=== PATIENT | female | born 1945 | race Caucasian/White ===

== ENCOUNTER 2018-06-12 19:27 | Inpatient (IN) | payer MEDICARE, OTHER ==
[2018-06-12] MEDS ORDERED: NS 0.9% 1000 ML** 2,000 ML IV ONE (19:39)
--- NOTE | 2018-06-12 19:48 | ED ---
Shortness of Breath - HPI Summary HPI Summary: This patient is a 72 year old female brought in by ambulance presenting to [facility] with a chief complaint of SOB since 3 days ago. Patient states that she has been suffering a terrible chest pain and dyspnea for the past 3 days. She says that whenever she gets up to get a glass of water, it takes several minutes for her to catch her breath. The pain is rated 5/10 in severity. Symptoms aggravated by nothing. Symptoms alleviated by nothing. Patient additionally reports back pain, nonproductive cough, low-grade fever, nausea, and a lack of appetite. Patient denies vomiting, abd pain. - History of Current Complaint Chief Complaint: EDShortnessOfBreath Time Seen by Provider: 06/12/18 19:34 Hx Obtained From: Patient Onset/Duration: Lasting Days - 3, Still Present Timing: Constant Dyspnea At: Rest Aggrevating Factors: Nothing Alleviating Factors: Nothing Associated Signs & Symptoms: Negative - vomiting, abd pain, Cough (Nonproductive ), Wheezing, Fever - Allergy/Home Medications Allergies/Adverse Reactions: Allergies Allergy/AdvReac Type Severity Reaction Status Date / Time Sulfa (Sulfonamide Allergy Hives Verified 06/12/18 19:54 Antibiotics) Home Medications: Home Medications Atenolol [Tenormin] 100 mg PO DAILY 06/12/18 [History Confirmed 06/12/18] Clopidogrel Bisulfate [Plavix] 75 mg PO DAILY 06/12/18 [History Confirmed ] Metformin HCl [Glucophage] 500 mg PO DAILY 06/12/18 [History Confirmed 06/12/18] [place]-3 Acid Ethyl Esters [Lovaza] 1 gm PO DAILY 06/12/18 [History Confirmed 04/28] Omeprazole 40 mg PO DAILY 06/12/18 [History Confirmed 06/12/18] Pravachol 40 mg PO DAILY 06/12/18 [History Confirmed 06/12/18] Ramipril [Altace] 10 mg PO DAILY 06/12/18 [History Confirmed 06/12/18] Sertraline HCl [Zoloft] 100 mg PO DAILY 06/12/18 [History Confirmed 06/12/18] PMH/Surg Hx/FS Hx/Imm Hx Previously Healthy: No Endocrine/Hematology History: Reports: Hx Diabetes Cardiovascular History: Reports: Hx Hypercholesterolemia, Hx Hypertension Opthamlomology History: Denies: Hx Legally Blind EENT History: Denies: Hx Deafness Infectious Disease History: No Infectious Disease History: Denies: Traveled Outside the [place] in Last 30 Days - Family History Known Family History: Positive: Hypertension - Social History Lives: Alone Alcohol Use: None Hx Substance Use: No Substance Use Type: Reports: None Hx Tobacco Use: Yes Smoking Status (MU): Light Every Day Tobacco Smoker Type: Cigarettes Review of Systems Positive: Fever Positive: Chest Pain Positive: Shortness Of Breath, Cough Positive: Nausea. Negative: Abdominal Pain, Vomiting Positive: Other - back pain All Other Systems Reviewed And Are Negative: Yes Physical Exam - Summary Physical Exam Summary: Appearance: Well-appearing, Well-nourished, lying in bed with mild dyspneic Skin: Warm, dry, no obvious rash Eyes: sclera anicteric, no conjunctival pallor ENT: mucous membranes moist, pharynx appears normal Neck: Supple, nontender Respiratory: Right lungs have some expiratory wheezes, No signs of consolidation Cardiovascular: Normal S1, S2. No murmurs. Normal distal pulses in tibial and radial bilaterally. Abdomen: Soft, nontender, normal active bowel sounds present Musculoskeletal: Normal, Strength/ROM Intact Neurological: A&Ox3, awake and alert, mentation is normal, speech is fluent and appropriate Psychiatric: affect is normal, does not appear anxious or depressed Triage Information Reviewed: Yes Vital Signs On Initial Exam: Initial Vitals Temp Pulse Resp BP Pulse Ox 99.8 F 92 20 139/75 94 06/12/18 19:34 06/12/18 19:34 06/12/18 19:34 06/12/18 19:34 06/12/18 19:34 Vital Signs Reviewed: Yes Diagnostics - Vital Signs Vital Signs Temp Pulse Resp BP Pulse Ox 06/12/18 19:34 99.8 F 92 20 139/75 94 - Laboratory Result Diagrams: 06/12/18 20:35 06/12/18 20:35 Lab Statement: Any lab studies that have been ordered have been reviewed, and results considered in the medical decision making process. - Radiology CXR Radiology Interpretation Completed By: ED Physician Summary of Radiographic Findings: CXR reveals, per ED physician, no acute process. Pending official report. - CT CTA Chest CT Interpretation Completed By: Radiologist Summary of CT Findings: CTA Chest reveals, per radiologist, IMPRESSION: 1. No acute pulmonary embolic disease. 2. Abnormal thickening of the wall of the lower lobe bronchi as well as an infiltrate located in the left upper lung. This is consistent with an inflammatory/infectious process. 3. 4 mm pulmonary nodule located in the periphery of the left upper lung. This appears to be a solitary pulmonary nodule with smooth margins and no calcification. ED physician has reviewed this radiology report. - EKG 1954 Cardiac Rate: NL EKG Rhythm: Sinus Rhythm - 87 BPM Ectopy: None Summary of EKG Findings: An EKG, taken 1954, reveals, NSR (87 BPM), borderline ST depression in diffuse leads, normal axis, normal interval Course/Dx - Course Course Of Treatment: This patient is a 72 year old female brought in by ambulance presenting to [facility] with a chief complaint of SOB since 3 days ago. Patient states that she has been suffering a terrible chest pain and dyspnea for the past 3 days. She says that whenever she gets up to get a glass of water , it takes several minutes for her to catch her breath. An EKG, taken 1954, reveals, NSR (87 BPM), borderline ST depression in diffuse leads. CXR reveals, per ED physician, no acute process. Pending official report. CTA Chest reveals, per radiologist, IMPRESSION: 1. No acute pulmonary embolic disease. 2. Abnormal thickening of the wall of the lower lobe bronchi as well as an infiltrate located in the left upper lung. This is consistent with an inflammatory/ infectious process. 3. 4 mm pulmonary nodule located in the periphery of the left upper lung. This appears to be a solitary pulmonary nodule with smooth margins and no calcification. ED physician has reviewed this radiology report. Bloodwork Obtained. In the ED course the patient was given Albuterol, Zithromax , Zofran, Rocephin, Solu-Medrol, Iodixanol. We discussed patient care with Dr. Vaca (Hospitalist) at 0040 and they agreed to accept the patient. Patient will be admitted with a dx of pneumonia. The patient is agreeable with this plan. - Diagnoses Provider Diagnoses: Pneumonia - Physician Notifications Discussed Care of Patient With: Hunter Vaca - Hospitalist Time Discussed With Above Provider: 00:40 - We discussed patient care with Dr. Vaca (Hospitalist) at 0040 and they agreed to accept the patient Instructed by Provider To: Admit As Inpatient Discharge - Sign-Out/Discharge Documenting (check all that apply): Patient Departure Patient Received Moderate/Deep Sedation with Procedure: No - Discharge Plan Condition: Stable Disposition: ADMITTED TO [facility] - Billing Disposition and Condition Condition: STABLE Disposition: Admitted to [facility] - Attestation Statements Document Initiated by Florencia: Yes Documenting Scribe: Leonardo Tan Provider For Whom Florencia is Documenting (Include Credential): MD Dakota Yipibpaulino Attestation: Leonardo Foster scribed for Antony Mckee MD on 06/13/18 at 0614. Scribe Documentation Reviewed: Yes Provider Attestation: The documentation as recorded by the Leonardo alvarado accurately reflects the service I personally performed and the decisions made by Antony estrella MD Status of Scribpaulino Document: Viewed
[2018-06-12] MEDS ORDERED: Albuterol 2.5 MG/3 ML NEB.SOL* (0.083%) INH ONE ×2 (20:25→23:38)
[2018-06-12] MEDS ORDERED: methylPREDNISolone 125 MG* 2 ML VIAL IV ONE (20:25)
[2018-06-12] MEDS ORDERED: cefTRIAXone(*) 1 GM in NS 0.9% 50 ML* 50 ML IVPB ONE (20:26)
[2018-06-12] MEDS ORDERED: Azithromycin IV(*) 500 MG in NS 0.9% 250 ML* 250 ML IVPB ONE (20:26)
[2018-06-12 20:44] LABS: ABS Basophils 0.1 10^3/ul (0-0.2); ABS Eosinophils 0.1 10^3/ul (0-0.6); ABS Lymphocytes 1.1 10^3/ul (1.0-4.8); ABS Neutrophils 10.6 10^3/ul (1.5-7.7); Eosinophil % 0.6 %; Hematocrit 38 % (35-47); Lymphocyte % 8.4 %; Mean Corpuscular HGB Conc 32 g/dL (31-36); Mean Corpuscular Hemoglobin 28 pg (27-31); Mean Corpuscular Volume 88 fL (80-97); Mean Platelet Volume 6.8 fL (7.4-10.4); Nucleated Red Blood Cells % 0.1; Platelet Count 426 10^3/uL (150-450); Red Blood Count 4.25 10^6 /uL (3.70-4.87); Red Cell Distribution Width 16 % (10.5-15); White Blood Count 12.7 10^3/uL (3.5-10.8)
[2018-06-12] MEDS ORDERED: NS 0.9% 250 ML* 250 ML ONE (20:47)
[2018-06-12 21:00] LABS: Albumin 3.8 g/dL (3.2-5.2); BUN/Creatinine Ratio 20.9 (8-20); Calcium 9.1 mg/dL (8.6-10.3); EGFR African American 41.8 (>60); EGFR Non-African American 34.6 (>60); Globulin 3.8 g/dL (2-4); Potassium 3.8 mmol/L (3.5-5.0); Total Bilirubin 0.3 mg/dL (0.2-1.0); Total Protein 7.6 g/dL (6.4-8.9)
[2018-06-12 21:03] LABS: Troponin I 0.02 ng/mL (<0.04)
[2018-06-12] MEDS ORDERED: Iodixanol* (CONTRAST) 320 MG/ML 100 ML SDV IV ONE (21:36)
[2018-06-12] MEDS ORDERED: Ondansetron INJ* 2 MG/ML VIAL ONE (22:00)
[2018-06-12] MEDS ORDERED: Ondansetron INJ* 2 MG/ML VIAL IV ONE (22:00)
[2018-06-13] MEDS ORDERED: Acetaminophen TAB* 325 MG PO ONE (00:56)
[2018-06-13] MEDS ORDERED: Dextrose 50% Syringe 50 ML* 25 GM/50 ML SYRINGE IV PUSH PRN (01:17)
[2018-06-13] MEDS ORDERED: Enoxaparin(*) 40 MG/0.4 ML SYR SUBCUT SCH (02:00)
--- NOTE | 2018-06-13 02:47 | ADMNOTE ---
Subjective Date of Service: 06/13/18 Interval History: HISTORY AND PHYSICAL PCP: [facility] CC: dyspnea HPI: Patient is a 72 year old smoker who denies history of COPD, who reports 3 days of anterior chest pain, and dyspnea on exertion. The pain is mild, 3-4/10 , and migrates from anterior to right posterior thorax. The pain is respirophasic at times. The dyspnea w/ exertion has worsened, and this led her to come to the ER. She has a non-productive cough, some nausea and vomiting, and fevers to 100 at home. Family History: Findings - Father of [place], mother of natural causes, no siblings, children are well Social History: Findings - retired nurse tech, , 4 children, lives independently, smokes 1/2 PPD, no alcohol or drugs Past Medical History: Findings - type 2 diabetes, hypertension, hyperlipidemia, CAD, PAD, chronic kidney disease, anxiety; PSH: left CEA, appendectomy years ago Review of Systems - Measurements Intake and Output: Intake and Output Last 24 Hours 06/10/18 06/11/18 06/12/18 06/13/18 06:59 06:59 06:59 06:59 Intake Total 2069 Balance 2069 Weight 61.235 kg Intake: IV Fluids 2069 - Review of Systems Constitutional Symptoms: Positive: Fatigue, Fever Negative: Weight Loss Dermatology: Positive: Normal HEENT: Positive: Normal Eyes: Positive: Normal Thyroid: Positive: Normal Negative: Palpitations Pulmonary: Positive: Cough, Shortness of Breath, Exercise Intolerance Negative: Sputum, Hemoptysis, Wheezing, COPD, Home Oxygen Cardiology: Positive: Chest Pain, Shortness of Breath, Peripheral Vascular Dis Negative: Swelling of Ankles, Syncope, Orthopnoea Gastroenterology: Positive: Nausea, Vomiting Negative: Abdominal Pain, Constipation, Diarrhea Genital - Urinary: Positive: Normal Genitourinay - Female: Positive: Menopause Musculoskeletal: Negative: Joint Pain Endocrinology: Positive: Diabetes Mellitus Hematologic/Lymphatic: Negative: Anemia Neurology: Positive: Normal Psychiatry: Positive: Anxiety Negative: Unusual Anxiety Allergic/Immunologic: Negative: Athsma Objective Active Medications: Home Medications: Atenolol (Tenormin Tab*) 100 mg PO DAILY [facility] Clopidogrel Bisulfate (Plavix Tab*) 75 mg PO DAILY [facility] Pantoprazole Sodium (Protonix Tab*) 40 mg PO DAILY [facility] Ramipril (Altace Cap*) 10 mg PO DAILY [facility] Sertraline HCl (Zoloft*) 100 mg PO DAILY [facility] Pravachol 40 mg PO DAILY 06/12/18 Metformin HCl [Glucophage] 500 mg PO DAILY 06/12/18 [place]-3 Acid Ethyl Esters [Lovaza] 1 gm PO DAILY 06/12/18 Vital Signs - 8 hr 06/12/18 06/12/18 06/12/18 19:34 20:00 20:05 Temperature 37.7 C Pulse Rate 93 87 89 Respiratory 20 19 27 Rate Blood Pressure 139/75 155/86 (mmHg) O2 Sat by Pulse 95 92 93 Oximetry 06/13/18 06/13/18 06/13/18 00:23 00:52 01:00 Temperature Pulse Rate 85 84 84 Respiratory 35 24 33 Rate Blood Pressure 94/76 122/63 (mmHg) O2 Sat by Pulse 95 93 93 Oximetry 06/13/18 06/13/18 02:00 02:13 Temperature 37.2 C Pulse Rate 78 80 Respiratory 29 20 Rate Blood Pressure 106/51 (mmHg) O2 Sat by Pulse 92 92 Oximetry Oxygen Devices in Use Now: Nasal Cannula Appearance: alert, no distress Eyes: No Scleral Icterus Ears/Nose/Mouth/Throat: NL Teeth, Lips, Gums Neck: NL Appearance and Movements; NL JVP Respiratory: Symmetrical Chest Expansion and Respiratory Effort, Clear to Auscultation Cardiovascular: NL Sounds; No Murmurs; No JVD, RRR Abdominal: NL Sounds; No Tenderness; No Distention, No Hepatosplenomegaly Lymphatic: No Cervical Adenopathy, No Axillary Adenopathy Extremities: No Edema Skin: No Rash or Ulcers Neurological: Alert and Oriented x 3 Lines/Tubes/Other Access: Clean, Dry and Intact Peripheral IV Nutrition: Taking PO's Result Diagrams: 06/12/18 20:35 06/12/18 20:35 Additional Lab and Data: Laboratory Tests 06/12/18 06/12/18 06/12/18 20:35 20:35 20:35 D-Dimer, Quantitative 459 H Glucose 154 H Lactic Acid 1.8 Calcium 9.1 AST 8 L ALT 6 L Troponin I 0.02 B-Natriuretic Peptide Total Protein 7.6 06/12/18 20:35 D-Dimer, Quantitative Glucose Lactic Acid Calcium AST ALT Troponin I B-Natriuretic Peptide 302 H Total Protein Diagnostic Imaging: CXR: no infiltrates CT Chest: no PE, left upper lobe infiltrates, small pulmonary nodule (4mm) EKG Data: Normal sinus, normal axis, T-waves inverted V1-V5, ST depression V2-V6 Assess/Plan/Problems-Billing Assessment: 72 year old woman with likely COPD, and right upper lobe pneumonia - Patient Problems (1) Pneumonia Current Visit: Yes Status: Acute Priority: High Code(s): J18.9 - PNEUMONIA , UNSPECIFIED ORGANISM SNOMED Code(s): 988875394 Comment: -Patient will be admitted, treated for community-acquired pneumonia -Ceftriaxone and azithromycin should cover strep pneumo, H influenza -Will send urine antigens -Not treating for COPD at this point, because not wheezing or hypoxic. (2) Chest pain Current Visit: Yes Status: Acute Priority: Medium Code(s): R07.9 - CHEST PAIN, UNSPECIFIED SNOMED Code(s): 14798462 Comment: -Patient has atypical chest pain, but has ischemia on EKG -Will monitor on telemetry, trend troponins, as she may have ischemia -Chest pain likely related to pneumonia (3) Type 2 diabetes mellitus Current Visit: Yes Status: Acute Priority: Medium Comment: -Will hold metformin due to CT contrast -Will use sliding scale insulin to control sugar if needed (4) DVT prophylaxis Current Visit: Yes Status: Acute Priority: Low Code(s): Z29.9 - ENCOUNTER FOR PROPHYLACTIC MEASURES, UNSPECIFIED SNOMED Code(s): 717431864 Comment: -Moderate risk -SC lovenox Status and Disposition: inpatient
[2018-06-13] MEDS: NS 0.9% 1000 ML** 1,000 ML IV SCH ×3 (03:00→22:46)
[2018-06-13] MEDS: Acetaminophen TAB* 325 MG PO PRN ×2 (05:40→19:38)
[2018-06-13 06:46] LABS: Troponin I 0.18 ng/mL (<0.04)
[2018-06-13] MEDS: Ondansetron INJ* 2 MG/ML VIAL IV PRN ×3 (08:22→19:38)
[2018-06-13] MEDS: Clopidogrel TAB* 75 MG PO SCH ×2 (08:28→09:26)
[2018-06-13] MEDS: Atorvastatin* 10 MG TAB PO SCH ×2 (08:28→09:26)
[2018-06-13] MEDS: Atenolol TAB* 50 MG PO SCH ×2 (08:28→09:26)
[2018-06-13] MEDS: Pantoprazole TAB * 40 MG TAB PO SCH ×2 (08:28→09:26)
[2018-06-13] MEDS: Sertraline* 100 MG TAB PO SCH (08:29)
[2018-06-13] MEDS: Insulin LISPRO* 1 UNITS UNIT SUBCUT SCH ×4 (08:31→21:36)
[2018-06-13] MEDS ORDERED: Ramipril CAP* 10 MG PO SCH (09:00)
[2018-06-13 09:24] LABS: Troponin I 0.3 ng/mL (<0.04)
[2018-06-13] MEDS ORDERED: Nitroglycerin TAB 0.4 MG* 0.4 MG TAB SL ONE (09:26)
[2018-06-13] MEDS ORDERED: Aspirin TAB* 325 MG PO ONE (09:38)
[2018-06-13] MEDS ORDERED: Aspirin TAB* 325 MG ONE (09:57)
[2018-06-13 10:40] LABS: ABS Lymphocytes 0.7 10^3/ul (1.0-4.8); ABS Monocytes 0.5 10^3/ul (0-0.8); Hematocrit 33 % (35-47); Hemoglobin 10.6 g/dL (12.0-16.0); Mean Corpuscular HGB Conc 33 g/dL (31-36); Mean Corpuscular Hemoglobin 29 pg (27-31); Mean Corpuscular Volume 88 fL (80-97); Nucleated Red Blood Cells % 0.1; Platelet Count 433 10^3/uL (150-450); Red Blood Count 3.72 10^6 /uL (3.70-4.87); Red Cell Distribution Width 16 % (10.5-15); White Blood Count 14.4 10^3/uL (3.5-10.8)
[2018-06-13 10:48] LABS: Activated Partial Thrombo Time 29.6 seconds (26.0-36.3); INR 1.14 (0.82-1.09)
[2018-06-13 10:49] LABS: HDL Cholesterol 39.8 mg/dL
[2018-06-13 10:57] LABS: BUN/Creatinine Ratio 22.5 (8-20); Calcium 8.6 mg/dL (8.6-10.3); EGFR African American 45.3 (>60); EGFR Non-African American 37.5 (>60)
[2018-06-13] MEDS: Heparin DRIP 25,000 UNITS(*) 25,000 UNITS/500 ML BAG IV SCH (11:17)
[2018-06-13] MEDS: Heparin VIAL(*) 5000 UNITS/ML VIAL (FIVE THOUSAND) IV PRN (11:17)
[2018-06-13] MEDS ORDERED: PROCHLORPERAZINE INJ 5 MG/ML 2 ML VIAL IV PRN (11:23)
--- NOTE | 2018-06-13 11:25 | PN ---
Subjective Date of Service: 06/13/18 Interval History: Ms. Lord is not feeling well this morning. She is having severe chest pain, unable to rate. Chest pain is left-sided, across right side of back, and along bilat ribs. No aggravating or alleviating factors. She had received nitro approx 5 min prior to my exam and reported no change in pain level. Has a dry cough. Denies SOB. Has been feeling nauseous and vomited after taking her medications this morning. Has had 3 cardiac stents placed in the past at [facility] - most recent approx 15 years ago. Nursing expressed concern re chest pain and nausea. Family History: Unchanged from Admission Social History: Unchanged from Admission Past Medical History: Unchanged from Admission Objective Active Medications: Acetaminophen (Tylenol Tab*) 650 mg PO Q4H PRN FEVER/HEADACHE Aspirin (Aspirin Tab*) 325 mg PO DAILY [facility] Atenolol (Tenormin Tab*) 100 mg PO DAILY [facility] Atorvastatin Calcium (Lipitor*) 20 mg PO DAILY [facility] Clopidogrel Bisulfate (Plavix Tab*) 75 mg PO DAILY [facility] Dextrose (D50w Syringe 50 Ml*) 12.5 gm IV PUSH .FOR FS < 60 - SS PRN FS < 60 Heparin Sodium (Porcine) (Heparin Vial(*)) 0 - 3,900 units IV .PER PROTOCOL PRN PROTOCOL DIRECTS Azithromycin 500 mg/ Sodium (Chloride) 250 mls @ 250 mls/hr IVPB Q24H [facility] Ceftriaxone Sodium 1,000 mg/ (Sodium Chloride) 50 mls @ 200 mls/hr IVPB Q24H LAKISHA Sodium Chloride (Ns 0.9% 1000 Ml) 1,000 mls @ 100 mls/hr IV PER RATE [facility] Heparin Sodium/Dextrose (Heparin Drip 25,000 Units(*)) 25,000 units in 500 mls @ 0 mls/hr IV PER RATE LAKISHA; Protocol Insulin Human Lispro (Humalog*) 0 units SUBCUT ACHS LAKISHA; Protocol Ondansetron HCl (Zofran Inj*) 4 mg IV Q6H PRN NAUSEA Pantoprazole Sodium (Protonix Tab*) 40 mg PO DAILY [facility] Ramipril (Altace Cap*) 10 mg PO DAILY [facility] Sertraline HCl (Zoloft*) 100 mg PO DAILY [facility] Vital Signs - 8 hr 06/13/18 06/13/18 06/13/18 08:00 08:24 08:31 Temperature Pulse Rate 92 92 Respiratory 18 22 Rate Blood Pressure 101/57 116/66 (mmHg) O2 Sat by Pulse 94 Oximetry 06/13/18 06/13/18 06/13/18 09:35 09:54 10:58 Temperature 98.0 F 98.1 F Pulse Rate 93 93 Respiratory 20 22 Rate Blood Pressure 104/41 100/43 (mmHg) O2 Sat by Pulse 97 93 Oximetry Oxygen Devices in Use Now: Nasal Cannula - 2L Appearance: Elderly female laying in bed in NAD Eyes: No Scleral Icterus Ears/Nose/Mouth/Throat: Mucous Membranes Moist Neck: NL Appearance and Movements; NL JVP, Trachea Midline Respiratory: Symmetrical Chest Expansion and Respiratory Effort, - - Scattered wheezing and rhonchi Cardiovascular: NL Sounds; No Murmurs; No JVD, RRR Abdominal: NL Sounds; No Tenderness; No Distention Extremities: No Edema Skin: No Rash or Ulcers Neurological: Alert and Oriented x 3 Lines/Tubes/Other Access: Clean, Dry and Intact Peripheral IV Nutrition: Taking PO's Result Diagrams: 06/14/18 06:08 06/14/18 06:08 Assess/Plan/Problems-Billing Assessment: Ms. Lord is a 72 yo F with PMH of DM2, HTN, HLD, CAD s/p 3 stents, PAD, CKD, and anxiety; who presented to the ED with c/o chest pain and SOB and was admitted for pneumonia. - Patient Problems (1) Elevated troponin Current Visit: Yes Status: Acute Code(s): R74.8 - ABNORMAL LEVELS OF OTHER SERUM ENZYMES SNOMED Code(s): 843454213 Comment: - Associated left-sided chest pain (now resolved) and nausea - Negative trop and minimal ST depression on admission, but this morning trop rising and profoud diffuse ST depression on EKG - NSTEMI vs demand ischemia d/t pneumonia - Appreciate Cardiology consult; recommends continuing current meds; will take to equipment operator/laborer/supervisor if trops continue to increase significantly (5-6) - Nitro x1 this morning without significant improvement (2) Pneumonia Code(s): J18.9 - PNEUMONIA, UNSPECIFIED ORGANISM Comment: - Presented with 3-4 days of SOB - CTA unremarkable for PE but shows JESSICA infiltrate - Pending strep pneumo and legionella antigens - Not treating for COPD at this point, because not wheezing or hypoxic; no formal dx of COPD, but dx is likely d/t smoking history - Continue ceftriaxone, azithromycin (3) Lung nodule Code(s): R91.1 - SOLITARY PULMONARY NODULE Comment: - 4mm JESSICA nodule noted on CT - High risk d/t smoking history; should have repeat CT in 12 months to reassess (4) CAD (coronary artery disease) Code(s): I25.10 - ATHSCL HEART DISEASE OF [place] CORONARY ARTERY W/O ANG PCTRS Comment: - S/p stenting to LCA in 2005, RCA in 2006, LAD in 2006 - LDL 119 - Continue aspirin; increase atorvastatin (5) Type 2 diabetes mellitus Comment: - Hgb 7.5% - Hold metformin d/t CT contrast - Continue Lispro SS (6) Hypertension Code(s): I10 - ESSENTIAL (PRIMARY) HYPERTENSION Comment: - Normotensive - Continue atenolol, ramipril (7) PAD (peripheral artery disease) Code(s): I73.9 - PERIPHERAL VASCULAR DISEASE, UNSPECIFIED Comment: - Continue Plavix (8) CKD (chronic kidney disease), stage III Code(s): N18.3 - CHRONIC KIDNEY DISEASE, STAGE 3 (MODERATE) Comment: - Creatinine at baseline (9) DVT prophylaxis Comment: - Heparin gtt (10) Full code status Code(s): Z78.9 - OTHER SPECIFIED HEALTH STATUS Comment: Status and Disposition: Inpatient. Anticipate d/c home when medically stable. Attending: Denise Castorena
[2018-06-13 12:24] LABS: Troponin I 0.64 ng/mL (<0.04)
--- NOTE | 2018-06-13 13:46 | CONS ---
CC: [facility] CARDIOLOGY CONSULTATION: DATE OF CONSULT: 06/13/18 INDICATION FOR CONSULT: Coronary artery disease, elevated troponin levels. HISTORY OF PRESENT ILLNESS: The patient is a 72-year-old woman with a history of stenting to her cor onary arteries, most recently in 2006. The patient was admitted to the hospital after 3 to 4 days of feeling chest pain, nausea, and some degree of shortness of breath. The patient states she was just not feeling well for 3 days or so. Unable to eat anything because of her nausea. Ultimately, the p atient decided to come to the emergency room because of her weakness. In the emergency room, the pat ient's initial EKG showed minimal ST-segment depressions in leads I, II, III, aVF, V2 through V6. Th ere were about 0.5 mm [address]-segment depression. Her initial troponin level was 0.18. A CAT sca n in the emergency room showed no evidence of pulmonary embolism. She did have a retrocardiac pneumo rios. The patient was admitted to the hospital with a diagnosis of pneumonia and was started on antibi otics. This morning, the patient continued to have her symptoms of chest discomfort, nausea, and tyler rtness of breath. Repeat EKG showed profound ST-segment depressions in the same leads as described julian bethea, [address]- segment depression. In speaking with the patient this morning, her symptoms a re not significantly different than what she was experiencing at home. She still had the anterior ch est pain occasionally radiating into her back. She had nausea. Her greatest complaint in the nausea and her profound weakness. She denies any significant shortness of breath, she denies any lower ext remity edema, she denies any palpitations. No lightheadedness, dizziness, or syncope. PAST MEDICAL HISTORY: Significant for coronary artery disease. She has had stenting to all 3 arteri es in 2005. She had a stent to her left circumflex artery, it was a 2.5 x 23 mm Cypher stent. In 2006, she had a stent to her proximal right coronary artery. She had a 3 mm x 28 mm Cypher tina nt. In November 2006, she had a stent to her LAD. She had a 2.5 mm x 28 mm Cypher stent. Other past medical history is significant for: 1. Hypertension. 2. Diabetes. 3. Hyperlipidemia. 4. Mild renal insufficiency. 5. Anxiety. She has had a left carotid endarterectomy in the past and an appendectomy in the past. MEDICATIONS: Outpatient Medications: 1. Sertraline 100 mg a day. 2. Ramipril 10 mg a day. 3. Pravachol 40 mg a day. 4. Omeprazole 20 mg a day. 5. Fish oil tablet 1 g daily. 6. Metformin 500 mg daily. 7. Plavix 75 mg a day. 8. Atenolol 100 mg a day. 9. Aspirin 325 a day. ALLERGIES: SULFA MEDICATIONS. FAMILY HISTORY: Her father of a myocardial infarction. Her mother of natural causes in he r 80s. SOCIAL HISTORY: She is a retired medical massage therapist. She is . She has 4 children. She live s independently. She smokes one-half pack of cigarettes a day. REVIEW OF SYSTEMS: Positive for nausea, positive for chest pain, positive for fevers, positive for c hills. Negative for change in weight, negative for change in bowel or bladder habits. Other 12-poin t review is unremarkable. PHYSICAL EXAM: Height is 5 feet 6 inches, weight is 143 pounds, temperature 98, heart rate is 93, bl ood pressure 104/41, and oxygen saturation 97% on 2 L. Sclerae anicteric. Oropharynx is pink withou t erythema. Carotids are 2+. She does have a carotid endarterectomy scar on her left. She has a sl ight bruise on her right. Thyroid is normal. JVD is normal. Cardiac Exam: S1 and S2 without any mu rmurs, rubs, or gallops. Lungs: Clear to auscultation. There is no dullness to percussion. Abdome n is soft. Mild epigastric tenderness. Normoactive bowel sounds. Extremities show no edema. She h as 2+ pulses throughout. The patient is awake and alert and oriented. She moves all 4 extremities e qually. DIAGNOSTIC STUDIES/LAB DATA: Chemistries within normal limits. BUN 31, creatinine 1.4, AST and ALT are actually low. BNP 302. Total cholesterol 119, LDL cholesterol of 55. EKG is as described above. Chest x-ray as described above. IMPRESSION: This is a 72-year-old woman with a history of coronary artery disease, history of stenti ng to all 3 coronary arteries back in 2005 and 2006, who is admitted to the hospital with chest pain, nausea, and fevers. The patient was originally diagnosed with pneumonia based on her CAT scan. She was admitted to the hospital for antibiotics. Subsequently, the patient was noted to have a minimal ly elevated troponin level and profound ST-segment depression in her lateral and in inferior leads. In speaking with the patient in great detail, it is very difficult to elicit any significant change i n her symptoms. Over the last 5 days, they have been pretty much constant throughout the past 5 days . For now, my recommendation is to continue on maximal medical therapy. She is on aspirin, Plavix, hep corie, beta elina, and her BONIFACIO inhibitor. At this point, I do not think it is necessary to take the patient to the clay processing labourer as this may be a sy ndrome of diffuse inflammatory process from her pneumonia. The patient will be followed with her troponins on a regular basis. If her troponin starts to increa se significantly, we will reconsider cardiac catheterization. Otherwise, the patient will be conside red for a cardiac stress test prior to discharge. [id number]/[facility] #: [id number]
[2018-06-13 15:25] LABS: Troponin I 1.29 ng/mL (<0.04)
[2018-06-13 18:25] LABS: Troponin I 2.06 ng/mL (<0.04)
[2018-06-13 20:56] LABS: Troponin I 3.21 ng/mL (<0.04)
--- NOTE | 2018-06-13 21:23 | PN ---
Progress Note - Progress Note Date of Service: 06/13/18 Note: Call from nurse re troponin 3. Dr. Quinones consulted earlier today re evolving significant ST depressions laterally, troponin trending up. She still has continuous chest pain. BP 90/45 range, holding off on morphine due to low BP. Discussed case with Dr. Lozano in ED. The overall picture includes pneumonia, demand ischemia. He was aware of case, had discussed earlier today with Dr. Quinones. Reviewed EKGs and troponins with Dr. Lozano. If troponin rises above 5, will call cardiology again.
[2018-06-13] MEDS: cefTRIAXone VIAL(*) 1,000 MG in NS 0.9% 50 ML* 50 ML IVPB SCH (21:55)
[2018-06-13] MEDS: Azithromycin IV(*) 500 MG in NS 0.9% 250 ML* 250 ML IVPB SCH (22:44)
[2018-06-13] MEDS: Morphine 4 MG/ML VIAL (1 ml) 4 MG/ML VIAL IV PRN (23:21)
[2018-06-14 00:37] LABS: Troponin I 4.34 ng/mL (<0.04)
[2018-06-14] MEDS: Morphine 4 MG/ML VIAL (1 ml) 4 MG/ML VIAL IV PRN (05:51)
[2018-06-14 06:31] LABS: ABS Lymphocytes 1.4 10^3/ul (1.0-4.8); ABS Monocytes 0.9 10^3/ul (0-0.8); ABS Neutrophils 9.6 10^3/ul (1.5-7.7); BUN/Creatinine Ratio 24.2 (8-20); Blood Urea Nitrogen 44 mg/dL (6-24); CO2 Carbon Dioxide 16 mmol/L (22-32); Calcium 8.5 mg/dL (8.6-10.3); EGFR Non-African American 27.2 (>60); Glucose 151 mg/dL (70-100); Hematocrit 30 % (35-47); Hemoglobin 9.8 g/dL (12.0-16.0); Lymphocyte % 11.7 %; Mean Corpuscular HGB Conc 32 g/dL (31-36); Mean Corpuscular Hemoglobin 28 pg (27-31); Mean Corpuscular Volume 88 fL (80-97); Mean Platelet Volume 6.9 fL (7.4-10.4); Platelet Count 424 10^3/uL (150-450); Red Blood Count 3.44 10^6 /uL (3.70-4.87); Red Cell Distribution Width 16 % (10.5-15); Sodium 138 mmol/L (135-145)
[2018-06-14 06:36] LABS: Anion Gap 10 mmol/L (2-11); Chloride 112 mmol/L (101-111); Potassium 5.1 mmol/L (3.5-5.0); Troponin I 6.36 ng/mL (<0.04)
[2018-06-14] MEDS ORDERED: Morphine 4 MG/ML VIAL (1 ml) 4 MG/ML VIAL IV PRN (07:19)
[2018-06-14] MEDS ORDERED: Perflutren Lipid Microsphere* 3 ML VIAL ONE (08:18)
[2018-06-14] MEDS ORDERED: diPHENhydraMINE PO* 25 MG PO PRN (08:56)
[2018-06-14] MEDS ORDERED: Diazepam TAB(*) 5 MG PO PRN (08:56)
[2018-06-14] MEDS: Insulin LISPRO* 1 UNITS UNIT SUBCUT SCH ×4 (08:58→20:28)
[2018-06-14] MEDS ORDERED: Atorvastatin* 20 MG TAB PO SCH (09:00)
[2018-06-14] MEDS: Aspirin TAB* 325 MG PO SCH (09:08)
[2018-06-14] MEDS: Sertraline* 100 MG TAB PO SCH (09:09)
[2018-06-14] MEDS: Atenolol TAB* 25 MG PO SCH (09:09)
[2018-06-14] MEDS: Pantoprazole TAB * 40 MG TAB PO SCH (09:09)
[2018-06-14] MEDS: Clopidogrel TAB* 75 MG PO SCH (09:09)
[2018-06-14] MEDS ORDERED: nitroGLYCERIN DRIP* 25,000 MCG/250 ML BTL ONE (09:39)
[2018-06-14] MEDS ORDERED: VERAPAMIL 2.5 MG/ML 2 ML VIAL ** 5 mg/2 ml ONE (09:39)
[2018-06-14] MEDS ORDERED: Heparin(*) 1000 UNIT/ML 10 ML VIAL CATH LAB IV ONE (09:39)
[2018-06-14] MEDS ORDERED: fentaNYL* 50 MCG/ML 2 ML VIAL (100 MCG VIAL) ONE (09:39)
[2018-06-14] MEDS ORDERED: Midazolam* 1 MG/ML 5 ML VIAL (5 MG) ONE (09:39)
[2018-06-14] MEDS ORDERED: Lidocaine 1% INJ* 10 MG/ML 30 ML SDV ONE (09:40)
[2018-06-14] MEDS ORDERED: Heparin 2 UNITS/ML IVPREMIX* 3,000 UNIT/1,500 ML BAG IV ONE (09:40)
[2018-06-14] MEDS ORDERED: Iohexol 350 (CONTRAST) 200 ML MDV IV ONE ×2 (09:40)
[2018-06-14] MEDS ORDERED: Iodixanol 320 (CONTRAST) 100 ML SDV ONE (09:42)
[2018-06-14 10:02] LABS: Troponin I 5.99 ng/mL (<0.04)
--- NOTE | 2018-06-14 10:15 | ECHO ---
*[facility]* [place] [address] Fax #: [phone] Transthoracic Echocardiogram Patient: Pop, Height: 66 in / Laura Ruffin 167.6 cm : 1945 Weight: 142.7 lb / Study Date: 06/14/2018 64.9 kg Age: 72 BP: 94 / 45 Gender: F BMI/BSA: 23.1 kg/m^2 HR: 77 bpm / 1.73 m^2 *Alcoholic Counselor: * Lacey Martin RDCS RN *Referring Physician: * Demarco Quinones MD *Reading Physician: * Demarco Quinones MD Indications: Chest Pain, unspecified. History: Coronary artery disease with coronary stenting. Risk factors: Current tobacco use. Hypertension. Diabetes mellitus. Dyslipidemia. Conclusions Summary: 1. Left ventricle: The cavity size is normal. Wall thickness is normal. The estimated ejection fraction is 30-35%. Severe hypokinesis of the mid-apical anteroseptal, anterior, lateral, and inferior myocardium possibly consistant with Takasubo's 2. Mitral valve: There is mild to moderate regurgitation. 3. Aortic valve: There is no evidence of stenosis. There is trace to mild regurgitation. 4. Tricuspid valve: There is moderate regurgitation. 5. Pulmonary arteries: Systolic pressure is estimated to be 50 mm Hg. 6. Study data: No prior study is available for comparison. Study data: Transthoracic echocardiogram. Procedure: Transthoracic echocardiography was performed. Image quality was fair. The study was technically limited due to Smoking history. A total of 3 ml of diluted Definity was administered IV. Image enhancement administered by Arleen Jaime RN. Complete 2D, spectral Doppler, and color flow Doppler. Patient status: Inpatient. Patient room number: 431. No prior study is available for comparison. Rhythm: Normal sinus rhythm. Findings Left ventricle: The cavity size is normal. Wall thickness is normal. The estimated ejection fraction is 30-35%. Regional wall motion abnormalities: Severe hypokinesis of the mid-apicalanteroseptal, anterior, lateral, and inferior myocardium. Features are consistent with a pseudonormal left ventricular filling pattern, with concomitant abnormal relaxation and increased filling pressure (grade 2 diastolic dysfunction). Right ventricle: The cavity size is normal. Severe hypokinesis of the RV apex. The estimated peak pressure is 61 mm Hg. There is severe pulmonary hypertension. Left atrium: The atrium is normal in size. Right atrium: The atrium is normal in size. Mitral valve: The leaflets are mildly thickened. There is no evidence of stenosis. There is mild to moderate regurgitation. The peak diastolic gradient is 3.3 mm Hg. Aortic valve: Not well visualized. The leaflets are mildly thickened. There is no evidence of stenosis. There is trace to mild regurgitation. The LVOT to aortic valve VTI ratio is 0.68. The ratio of LVOT to aortic valve peak velocity is 0.71. The ratio of LVOT to aortic valve mean velocity is 0.69. The mean systolic gradient is 2.0 mm Hg. The peak systolic gradient is 4.0 mm Hg. Tricuspid valve: The valve is structurally normal. There is no evidence of stenosis. There is moderate regurgitation. Pulmonic valve: There is no evidence of stenosis. There is no significant regurgitation. The peak systolic gradient is 1.0 mm Hg. Aorta: Aortic root: The aortic root is not dilated. Ascending aorta: The ascending aorta is not visualized. Aortic arch: The aortic arch is not visualized. Pulmonary arteries: Not well visualized. Systolic pressure is estimated to be 50 mm Hg. Systemic veins: Inferior vena cava: The vessel is normal in size. The respirophasic diameter changes are blunted (< 50%). Measurements Left ventricle Value Ref Right atrium Value Ref RONNY, LAX (L) 3.7 cm 3.8 - 5.2 ML dim, ES, A4C 3.5 cm 2.6 - ESD, LAX 3.2 cm 2.2 - 3.5 4.4 FS, LAX (L) 13 % 27 - 45 SI dim, ES, A4C 3.4 cm 3.4 - PW, ED, LAX (H) 1.0 cm 0.6 - 0.9 5.3 IVS/PW, ED 0.99 E', lat phil, TDI (L) 6.3 cm/sec >=10.0 Aortic valve Value R ef E/e', lat phil, 14 Phil diam, ED 1.6 cm ---- ---- TDI Peak v, S 1.04 m/sec -------- E', med phil, TDI (L) 3.7 cm/sec >=7.0 Mean v, S 0.74 m/sec - ------- E/e', med phil, 24 VTI, S 22.2 cm ---- ---- TDI Mean grad, S 2.0 mm Hg -------- E', avg, TDI 5.0 cm/sec Peak grad, S 4.0 mm Hg ---- ---- E/e', avg, TDI (H) 18 <=14 Mitral valve Value Ref LVOT Value Ref Peak E 0.9 m/sec -------- Peak winnie, S 0.74 m/sec Peak A 0.87 m/sec -------- Mean winnie, S 0.51 m/sec Decel time 158 ms -------- VTI, S 15.0 cm Peak grad, D 3.3 mm Hg -------- Mean grad, S 1 mm Hg Peak E/A ratio 1 -------- MR PISA radius 0.6 cm -------- Ventricular septum Value Ref IVS, ED, LAX (H) 1.0 cm 0.6 - 0.9 Tricuspid valve Value Ref TR peak v (H) 3.4 m/sec <=2.8 Right ventricle Value Ref Peak RV-RA grad, 46 mm Hg -------- RONNY minor ax, 2.7 cm 1.9 - 3.5 S A4C mid Aortic root Value Ref Left atrium Value Ref Root diam 2.6 cm <3.9 AP dim, ES 2.80 cm 2.70 - Root max diam, ED 2.6 cm <3.9 3.80 ML dim, A4C 3.0 cm Inferior vena cava Value Ref SI dim, A4C 4.3 cm Diam 2.2 cm -------- Vol/bsa, ES, 1-p 20 ml/m^2 11 - 40 A4C Vol/bsa, ES, 1-p 18 ml/m^2 13 - 40 A2C Vol/bsa, ES, A/L 22 ml/m^2 16 - 34 Legend: (L) and (H) stewart values outside specified reference range. Prepared and electronically signed by Demarco Quinones MD 06/14/2018 10:15
[2018-06-14] MEDS ORDERED: Adenosine (DIAGNOSTIC) * 3 MG/ML 20 ML VIAL (60 MG) IV ONE (10:33)
[2018-06-14] MEDS ORDERED: Adenosine* 3 MG/ML VIAL ONE (10:34)
--- NOTE | 2018-06-14 10:51 | PN ---
Subjective Date of Service: 06/14/18 Interval History: Ms. Lord is feeling poor this morning. She is having left sided chest pain which waxes and wanes, but is a 7/10 at the worst. No aggravating or alleviating factors. Frequent dry cough and was up much of the night coughing. Denies SOB at rest, but has significant SOB with any exertion. Denies N/V. Does not want me to call any of her family to update them. Nursing concerned about rising trops, EKG changes, and continued CP. Family History: Unchanged from Admission Social History: Unchanged from Admission Past Medical History: Unchanged from Admission Objective Active Medications: Acetaminophen (Tylenol Tab*) 650 mg PO Q4H PRN FEVER/HEADACHE Aspirin (Aspirin Tab*) 325 mg PO DAILY [facility] Atenolol (Tenormin Tab*) 25 mg PO DAILY [facility] Atorvastatin Calcium (Lipitor*) 20 mg PO DAILY [facility] Clopidogrel Bisulfate (Plavix Tab*) 75 mg PO DAILY [facility] Dextrose (D50w Syringe 50 Ml*) 12.5 gm IV PUSH .FOR FS < 60 - SS PRN FS < 60 Diazepam (Valium Tab(*)) 5 mg PO ONCE PRN inbound call center representative to [employer] Diphenhydramine HCl (Benadryl Po*) 25 mg PO ONCE PRN inbound call center representative to [employer] Heparin Sodium (Porcine) (Heparin Vial(*)) 0 - 3,900 units IV .PER PROTOCOL PRN PROTOCOL DIRECTS Azithromycin 500 mg/ Sodium (Chloride) 250 mls @ 250 mls/hr IVPB Q24H [facility] Ceftriaxone Sodium 1,000 mg/ (Sodium Chloride) 50 mls @ 200 mls/hr IVPB Q24H [facility] Sodium Chloride (Ns 0.9% 1000 Ml) 1,000 mls @ 100 mls/hr IV PER RATE [facility] Heparin Sodium/Dextrose (Heparin Drip 25,000 Units(*)) 25,000 units in 500 mls @ 0 mls/hr IV PER RATE [facility]; Protocol Insulin Human Lispro (Humalog*) 0 units SUBCUT ACHS [facility]; Protocol Morphine Sulfate (Morphine 4 Mg/Ml Vial (1 Ml)) 2 mg IV Q4H PRN PAIN Ondansetron HCl (Zofran Inj*) 4 mg IV Q6H PRN NAUSEA Pantoprazole Sodium (Protonix Tab*) 40 mg PO DAILY [facility] Prochlorperazine Edisylate (Compazine Inj*) 10 mg IV Q6H PRN NAUSEA/VOMITING Sertraline HCl (Zoloft*) 100 mg PO DAILY [facility] Vital Signs - 8 hr 06/14/18 06/14/18 06/14/18 05:51 06:29 07:18 Temperature Pulse Rate Respiratory 20 20 Rate Blood Pressure 94/45 (mmHg) O2 Sat by Pulse Oximetry 06/14/18 06/14/18 08:00 09:05 Temperature 97.6 F Pulse Rate 76 Respiratory 20 20 Rate Blood Pressure 105/52 (mmHg) O2 Sat by Pulse 97 Oximetry Oxygen Devices in Use Now: Nasal Cannula - 2L Appearance: Elderly female laying in bed in NAD Eyes: No Scleral Icterus Ears/Nose/Mouth/Throat: Mucous Membranes Moist Neck: NL Appearance and Movements; NL JVP, Trachea Midline Respiratory: Symmetrical Chest Expansion and Respiratory Effort, - - Scattered wheezing, otherwise diminished Cardiovascular: NL Sounds; No Murmurs; No JVD, RRR Abdominal: NL Sounds; No Tenderness; No Distention Extremities: No Edema Skin: No Rash or Ulcers Neurological: Alert and Oriented x 3 Lines/Tubes/Other Access: Clean, Dry and Intact Peripheral IV Result Diagrams: 06/14/18 06:08 06/14/18 06:08 Assess/Plan/Problems-Billing Assessment: Ms. Lord is a 72 yo F with PMH of DM2, HTN, HLD, CAD s/p 3 stents, PAD, CKD, and anxiety; who presented to the ED with c/o chest pain and SOB and was admitted for pneumonia. - Patient Problems (1) Elevated troponin Code(s): R74.8 - ABNORMAL LEVELS OF OTHER SERUM ENZYMES Comment: - Associated left-sided chest pain (now resolved) and nausea - Negative trop and minimal ST depression on admission - Trops peaked at 6.36 and continues to have diffuse ST depression on EKG - Echo shows severe global hypokinesis consistent with Takasubo, EF 30-35% - NSTEMI vs demand ischemia d/t pneumonia - Appreciate Cardiology consult; recommends continuing current meds; will take to [employer] today due to rising trops (2) Chest pain Code(s): R07.9 - CHEST PAIN, UNSPECIFIED Comment: - Left-sided and 7/10 at the worst - NSTEMI vs pneumonia - Plan as above - Continue morphine with hold parameters for BP (3) Pneumonia Code(s): J18.9 - PNEUMONIA, UNSPECIFIED ORGANISM Comment: - Presented with 3-4 days of SOB - CTA unremarkable for PE but shows JESSICA infiltrate - Pending strep pneumo and legionella antigens - Not treating for COPD at this point, because not wheezing or hypoxic; no formal dx of COPD, but dx is likely d/t smoking history and she would benefit from PFTs once this acute illness has resolved - Continue ceftriaxone, azithromycin (4) Acute respiratory failure with hypoxia Code(s): J96.01 - ACUTE RESPIRATORY FAILURE WITH HYPOXIA Comment: - Secondary to pneumonia - Requiring 3L NC - Titrate oxygen - Plan as above (5) Sepsis Comment: - Resolved - Met criteria on admission with tachycardia, tachypnea, and leukocytosis; source is pneumonia - Received appropriate fluid bolus and abx in ED (6) Lung nodule Code(s): R91.1 - SOLITARY PULMONARY NODULE Comment: - 4mm JESSICA nodule noted on CT - High risk d/t smoking history; should have repeat CT in 12 months to reassess (7) CAD (coronary artery disease) Code(s): I25.10 - ATHSCL HEART DISEASE OF [place]' CORONARY ARTERY W/O ANG PCTRS Comment: - S/p stenting to LCA in 2005, RCA in 2006, LAD in 2006 (all at [facility]) - LDL 119 - Continue aspirin, atorvastatin (increased dose) (8) Type 2 diabetes mellitus Comment: - Hgb 7.5% - Hold metformin d/t CT contrast - Continue Lispro SS (9) Hypertension Code(s): I10 - ESSENTIAL (PRIMARY) HYPERTENSION Comment: - Normotensive - Continue atenolol, ramipril (10) PAD (peripheral artery disease) Code(s): I73.9 - PERIPHERAL VASCULAR DISEASE, UNSPECIFIED Comment: - Continue Plavix (11) CKD (chronic kidney disease), stage III Code(s): N18.3 - CHRONIC KIDNEY DISEASE, STAGE 3 (MODERATE) Comment: - Creatinine at baseline (12) DVT prophylaxis Comment: - Heparin gtt (13) Full code status Code(s): Z78.9 - OTHER SPECIFIED HEALTH STATUS Comment: Status and Disposition: Inpatient. Anticipate d/c home when medically stable. Attending: Denise Castorena
--- NOTE | 2018-06-14 13:56 | CATH ---
CC: [facility] * CARDIAC CATHETERIZATION REPORT: DATE OF PROCEDURE: 06/14/18 PROCEDURE: Cardiac catheterization including coronary angiography. INDICATION FOR PROCEDURE: Acute coronary syndrome, coronary artery disease. The patient is a 72-year-old female with a history of coronary artery disease with history of stenting to all 3 coronary arteries back in 2005 and 2006. Her last cath was in 2006, which was a stent to her LAD. The patient was admitted to the hospital yesterday with chest pain, shortness of breath, fevers, nausea. Her EKG showed diffuse ST-segment depression throughout her lateral and inferior saenz. The patient's chest pain was constant throughout the past previous 5 days. Her initial troponin level was 0.3. Over the last 24 hours, it has risen to a maximum of 6.3. The patient continues to have some mild chest pain. Cardiac catheterization was recommended. DESCRIPTION OF PROCEDURE: The patient was brought to the catheterization lab in a fasting state. Informed consent had been obtained prior to the procedure. All labs were reviewed. The patient's creatinine had gone up to 1.8 from a baseline of 1.3. The patient was placed supine on the procedure table. Her right radial wrist was prepped and draped in the usual fashion. 1% lidocaine was used for local anesthesia. The radial artery was entered by a Seldinger technique and a guidewire was placed. Over the guidewire, a 6-Tajik hydrophilic sheath was placed. The patient had an infusion of verapamil and nitroglycerin. Heparin was not used as the patient was on a heparin drip. The patient underwent coronary angiography using a 6-Tajik TIG catheter. At the end of the procedure, all sheaths and catheters were removed. The patient tolerated the procedure well and no complications. A total of 50 cc of Visipaque dye was used. A total of 3.3 minutes of fluoro time was used. CORONARY ARTERIES: 1. Left main: The left main was normal in size that bifurcated into the LAD and circumflex. The proximal left main had an eccentric 20% stenosis. 2. Left anterior descending artery: The LAD was normal in size. It gave off 1 diagonal vessel. The proximal LAD had mild calcification. The mid LAD had a long stent. At the distal portion of the stent was a critical 95% in-stent restenosis. After the stent, the diagonal vessel was without disease, the LAD was occluded at the distal end of the stent. There was no clear evidence of collateral flow to the distal LAD itself. 3. Left circumflex artery: The circumflex artery was normal in size. It gave off 1 obtuse marginal branch. The stent in the mid left circumflex artery had minimal restenosis. The OM1 branch was without disease. The continuation of the circumflex artery in the AV groove was a very small artery. There was an ostial stenosis of the circumflex at the stent that was 75%. 4. The right coronary artery: The RCA was a large dominant vessel. It gave off the PDA and 3 posterolateral branches. The proximal right coronary artery had a stent. In the stent, there was restenosis of 90%. There was sequential 90% stenosis of in-stent restenosis. The remainder of the right coronary artery PDA and posterolateral branches were without disease. IMPRESSION: 1. In-stent restenosis of the LAD at 95%. The remainder of the diagonal vessel was without disease. 2. Occluded LAD distal to the proximal stent with no evidence of collateral flow. 3. Critical restenosis of 90% to the proximal right coronary artery. The remainder of the vessel was without disease. RECOMMENDATION: The patient does not clearly have an acute coronary syndrome. There is no evidence of de shelley plaque instability. Her in-stent restenosis is not likely unstable. The patient's elevated troponin are probably due to her ongoing cardiac demand from her cardiomyopathy. For now, intervention will not be undertaken because of a rise in creatinine and minimally elevated troponin levels. The patient will be observed, perhaps interventions later on in her hospital stay or as an outpatient. [id number]/[facility] #: [id number] MAURY
[2018-06-14] MEDS: cefTRIAXone VIAL(*) 1,000 MG in NS 0.9% 50 ML* 50 ML IVPB SCH (20:16)
[2018-06-14] MEDS: Heparin DRIP 25,000 UNITS(*) 25,000 UNITS/500 ML BAG IV SCH (20:17)
[2018-06-14] MEDS: Azithromycin IV(*) 500 MG in NS 0.9% 250 ML* 250 ML IVPB SCH (22:15)
[2018-06-14] MEDS: Ondansetron INJ* 2 MG/ML VIAL IV PRN (23:27)
[2018-06-14] MEDS ORDERED: NS 0.9% 250 ML* 250 ML IV ONE (23:33)
--- NOTE | 2018-06-14 23:37 | PN ---
Hospitalist Progress Note Date of Service: 06/14/18 HOSPITALIST ADDENDUM Called by RN because patient is c/o nausea and lightheadedness. Cardiac cath earlier today revealed in-stent restenosis LAD 95%, occluded distal LAD, 90% RCA - initial plan was for intervention later during hospital stay or as outpatient. Seen at bedside. Pale with mild diaphoresis, denies chest pain. Selected Entries 06/14/18 06/15/18 22:01 00:00 Heart Rate 73 Respiratory 26 Rate Blood Pressure 90/47 (mmHg) O2 Sat by Pulse 96 Oximetry CVS: normal S1 and S2, RRR Chest: BS+ bilaterally with no added sounds EKG: NSR at [address] depressions in II, III, aVL, V3-V6, less pronounced than earlier today. Laboratory Tests 06/14/18 23:47 Troponin I 19.68 H* A/P: NSTEMI - Already on maximal medical therapy with Aspirin, Plavix, Heparin drip, Atenolol, Statin. - Cardiology called - Dr Quinones will contact Dr Lozano.
[2018-06-15 00:18] LABS: Troponin I 19.68 ng/mL (<0.04)
[2018-06-15] MEDS ORDERED: nitroGLYCERIN DRIP* 25,000 MCG/250 ML BTL ONE (00:44)
[2018-06-15] MEDS ORDERED: nitroGLYCERIN DRIP* 25,000 MCG/250 ML BTL IV SCH (01:00)
[2018-06-15 01:07] LABS: Anion Gap 10 mmol/L (2-11); BUN/Creatinine Ratio 20.7 (8-20); Blood Urea Nitrogen 52 mg/dL (6-24); Calcium 7.3 mg/dL (8.6-10.3); Chloride 112 mmol/L (101-111); EGFR African American 22.7 (>60); EGFR Non-African American 18.8 (>60); Glucose 122 mg/dL (70-100); Sodium 133 mmol/L (135-145)
[2018-06-15 01:08] LABS: CO2 Carbon Dioxide 11 mmol/L (22-32)
[2018-06-15 01:18] LABS: Urine Appearance Cloudy; Urine Bacteria Absent (Absent); Urine Bilirubin Negative (Negative); Urine Blood Negative (Negative); Urine Color Yellow; Urine Glucose Negative (Negative); Urine Ketones Trace (Negative); Urine Nitrite Negative (Negative); Urine Protein 1+(30 mg/dL) (Negative); Urine Red Blood Cell 2+(6-10/hpf) (Absent); Urine Specific Gravity 1.036 (1.010-1.030); Urine Squamous Epithelial Cell Present (Absent); Urine Urobilinogen Negative (Negative); Urine White Blood Cell Trace(0-5/hpf) (Absent)
[2018-06-15 04:16] LABS: Troponin I 23.86 ng/mL (<0.04)
[2018-06-15 05:45] LABS: Hematocrit 28 % (35-47); Hemoglobin 9.1 g/dL (12.0-16.0); Mean Corpuscular HGB Conc 33 g/dL (31-36); Mean Corpuscular Hemoglobin 29 pg (27-31); Mean Corpuscular Volume 88 fL (80-97); Mean Platelet Volume 7.1 fL (7.4-10.4); Platelet Count 417 10^3/uL (150-450); Red Blood Count 3.11 10^6 /uL (3.70-4.87); Red Cell Distribution Width 17 % (10.5-15); White Blood Count 13.6 10^3/uL (3.5-10.8)
[2018-06-15 05:59] LABS: BUN/Creatinine Ratio 19.3 (8-20); Blood Urea Nitrogen 58 mg/dL (6-24); C Reactive Protein 127.74 mg/L (<8.01); CO2 Carbon Dioxide 15 mmol/L (22-32); Calcium 8.1 mg/dL (8.6-10.3); Chloride 108 mmol/L (101-111); EGFR African American 18.4 (>60); EGFR Non-African American 15.2 (>60); Glucose 133 mg/dL (70-100); Sodium 137 mmol/L (135-145)
[2018-06-15 06:01] LABS: Anion Gap 14 mmol/L (2-11); Potassium 5.8 mmol/L (3.5-5.0)
[2018-06-15 06:16] LABS: Polychromasia 1+
[2018-06-15 06:17] LABS: ABS Neutrophils 11.2 10^3/ul (1.5-7.7)
[2018-06-15] MEDS: Heparin VIAL(*) 5000 UNITS/ML VIAL (FIVE THOUSAND) IV PRN (06:21)
[2018-06-15] MEDS: Heparin DRIP 25,000 UNITS(*) 25,000 UNITS/500 ML BAG IV SCH (06:22)
[2018-06-15] MEDS ORDERED: NS 0.9% 1000 ML** 1,000 ML IV SCH (07:00)
[2018-06-15] MEDS ORDERED: Patiromer POWDER* 8.4 GM PAK PO ONE (07:36)
[2018-06-15] MEDS: Acetaminophen TAB* 325 MG PO PRN (07:40)
[2018-06-15] MEDS: Insulin LISPRO* 1 UNITS UNIT SUBCUT SCH ×2 (08:56→12:12)
[2018-06-15] MEDS ORDERED: Atorvastatin* 40 MG TAB PO SCH (09:00)
[2018-06-15 11:48] LABS: Troponin I 26.83 ng/mL (<0.04)
[2018-06-15 11:51] LABS: Urine Creatinine Concentration 58.29 mg/dL
[2018-06-15] MEDS: Atenolol TAB* 25 MG PO SCH (12:11)
[2018-06-15] MEDS: Clopidogrel TAB* 75 MG PO SCH (12:11)
[2018-06-15] MEDS: Sertraline* 100 MG TAB PO SCH (12:11)
[2018-06-15] MEDS: Aspirin TAB* 325 MG PO SCH (12:11)
[2018-06-15] MEDS: Pantoprazole TAB * 40 MG TAB PO SCH (12:11)
[2018-06-15 12:35] VITALS: BP 87/52
--- NOTE | 2018-06-15 14:11 | TRS ---
CC: [facility]; Dr. Haim Soto; Dr. Dimitrios Lozano; Dr. Demarco Quinones * DATE OF ADMISSION: 06/13/2018. DATE OF TRANSFER: 06/15/2018. PRIMARY CARE PHYSICIAN: [facility]. ATTENDING PHYSICIAN: Dr. Denise Castorena * (dictated by Brian Brown NP). PRIMARY DIAGNOSES: 1. Kxa-ZM-hrzsdlop IL. 2. Acute on chronic kidney injury, baseline stage 3. 3. Sepsis. 4. Acute hypoxic respiratory failure. 5. Community-acquired pneumonia. 6. Solitary lung nodule. SECONDARY DIAGNOSES: 1. Diabetes mellitus, type 2. 2. Peripheral arterial disease. 3. Hypertension. STUDIES WHILE IN THE HOSPITAL: 1. Chest x-ray on 06/12/2018, reads as no evidence for active cardiopulmonary disease. 2. EKG on 06/12/2018 shows normal sinus rhythm with a rate of 87, diffuse mild ST depression, QTC 431. There are no previous EKG's on file to compare. 3. Chest/thorax CTA on 06/12/2018, reads as no acute pulmonary embolic disease. Abnormal thickening of the wall of the lower lobe bronchi as well as an infiltrate located in the left upper lung. This is consistent with an inflammatory/infectious process. A 4 mm pulmonary nodule located in the periphery of the left upper lung. This appears to be a solitary pulmonary nodule with smooth margins and no calcification. For patients at low risk ( minimal or absent history of smoking and of other known risk factors), no routine follow-up is indicated. For patients at high risk (history of smoking or of other known risk factors), consider optional CT at 12 months. 4. EKG on 06/13/2018 shows normal sinus rhythm with a rate of 94, diffuse ST depression, worse from the previous EKG, QTC 418. 5. EKG on 06/13/2018 shows normal sinus rhythm with a rate of 80, diffuse ST depression similar to that of the previous EKG, QTC 408. 6. EKG on 06/14/2018 shows normal sinus rhythm with a rate of 77, diffuse ST depression consistent with previous EKG, QTC 450. 7. Transthoracic echocardiogram on 06/14/2018, reads as left ventricle: The cavity size is normal. Wall thickness is normal. The estimated ejection fraction is 30 to 35 percent. Severe hypokinesis of the mid-apical anteroseptal , anterior, lateral, and inferior myocardium possibly consistent with Takotsubo. Mitral valve: There is mild to moderate regurgitation. Aortic valve : There is no evidence of stenosis. There is trace to mild regurgitation. Tricuspid valve: There is moderate regurgitation. Pulmonary arteries: Systolic pressure is estimated to be 50 mmHg. No prior study is available for comparison. 8. EKG on 06/14/2018 shows normal sinus rhythm with a rate of 70, ST depression consistent with previous EKG, QTC 461. 9. EKG on 06/15/2018 shows normal sinus rhythm with a rate of 72, minimal ST depression improved from previous EKG, QTC 401. HISTORY OF PRESENT ILLNESS AND HOSPITAL COURSE: Ms. Lord is a 72-year-old female with a past medical history of diabetes mellitus type 2, hypertension, hyperlipidemia, coronary artery disease status post three stents, most recently in 2006, peripheral artery disease, chronic kidney disease stage 3, and anxiety who presented to the emergency room on 06/13/2018 with complaints of chest pain and shortness of breath. Please see the history and physical by Dr. Vaca for a complete summary of the events leading up to this hospitalization. In short, the patient had three days of left-sided chest pain with dyspnea on exertion. She was also experiencing some nausea, vomiting, and fevers at home. In the emergency room, she had imaging as noted above. She was noted to meet sepsis criteria with tachycardia, tachypnea, and leukocytosis. The source was determined to be pneumonia. She was given appropriate fluid bolus and antibiotics in the emergency room. White blood count on admission was 12.7, creatinine on admission was 1.48. There is limited data in our records, though her last creatinine on record here at the hospital was 1.4 back in 2011. The patient did have a negative troponin on admission. She ultimately was requiring two liters of oxygen to maintain saturations in the 90s. She was admitted by the Hospitalist Service. The patient continued to experience chest pain and the morning after admission, troponin was rechecked and noted to be 0.18. At that point, an EKG was done which, as noted above, showed worsening ST depression diffusely. From there on out, the patient had serial troponins. On the morning of 06/14/2018, troponin peaked at 6.36. The patient had been seen by Dr. Quinones from Cardiology on 06/13 due to this elevated troponin and EKG changes. Dr. Quinones indicated that if the troponin reached 5 to 6, there will be consideration to take her to the liaison inspection laboratory assistant. The patient was already on maximal therapy of aspirin, Plavix, Heparin drip, beta elina, and BONIFACIO inhibitor. Ultimately, she was taken to the liaison inspection laboratory assistant on 06/14/2018. At that point, she was found to have 90 percent restenosis at her LAD stent, 90 percent restenosis in the RCA stent, and 30 to 40 percent restenosis in the LC extent. At that point, no intervention was taken due to the patient's rise in creatinine, which at that point was 1.82. The patient was subsequently transferred to the Intensive Care Unit after leaving the liaison inspection laboratory assistant. She continued to have chest pain and nausea. On 2018, around 2300, she had another troponin which was noted to be 19.68. She was started on a nitro drip. She was also noted to be hypotensive with systolic pressures down into the 70s and some complaints of dizziness. She was given fluid boluses for this, though we have been judicious with fluids due to her decreased EF. Since being on the nitro drip, the patient's chest pain has resolved. She did have more serial troponins and the most recent troponin as of 519 this morning was 25.40. The patient was seen again this morning by Dr. Quinones and by Dr. Soto with Interventional Cardiology and the plan was made to transfer the patient to [facility]. At this point, her creatinine has bumped to 3.01 and so cardiac catheterization is not possible at this facility due to these critical lesions and worsening renal function and potential need for dialysis. The patient is producing minimal amounts of urine at this time. She did have a potassium this morning of 5.8 for which she was given Patiromer. She has remained on the Heparin drip since initiation. I will note that the patient had one cardiac stent placed in 2005 and two cardiac stents placed in 2006, and both of those stents were placed at [facility]. At this point, the patient is NPO , though she did have a half a piece of toast and a few sips of water this morning around 0800. Regarding her pneumonia, the patient's sepsis has been resolved. The patient was placed on Ceftriaxone and Azithromycin on admission, and so has received two days of both. She remains on two liters of oxygen at this point, saturating in the mid 90s. Blood glucose has been under good control. On exam this morning, the patient was resting upon my arrival. She awoke to voice and offers no complaints. I did let the patient know that the ICU nurse would contact her daughter to update her and the plan of treatment and the patient did not request any further family members to be contacted at this point. She has no complaints of chest pain or shortness of breath and has not had any nausea or vomiting this morning. PHYSICAL EXAMINATION: General: Ms. Lord is a well-developed, well-nourished, elderly, white woman lying in bed in no acute distress. She appears her stated age. Vital Signs: Temperature 98.4, heart rate 71, respiratory rate 19, oxygen saturation 95 percent on 2 liters nasal cannula, blood pressure 75/42. HEENT: Head is atraumatic, normocephalic. Visual huston are grossly intact. Pupils are equal, round, and reactive to light and accommodation. Hearing is grossly intact. Oral mucus membranes are moist and without lesions. Neck: Full range of motion. Trachea midline. No lymphadenopathy. Respiratory: Symmetrical chest expansion. No chest wall deformities. Scattered wheezing throughout and otherwise diminished. No rhonchi or rubs. Cardiovascular: Regular rate and rhythm. S1, S2 present. No murmurs, rubs, or gallops. No JVD. Extremities: Skin warm and smooth bilaterally. No edema. No clubbing or cyanosis. Pedal pulses 2+ bilaterally. Musculoskeletal: Full range of motion. No pain or deformities. Abdomen: Soft, nontender to palpation. Bowel sounds normoactive throughout. Neuro: Awake, alert and oriented times four. Cranial nerves II through XII grossly intact. Moves all extremities. Skin: Grossly intact without lesions. Our job training supervisor, Dr. Soto, has spoken with an accepting physician at [facility], whose name I do not know at the time of this dictation, though they have agreed to accept the patient and the patient is herself accepting of the transfer and understanding of the plan and course of treatment. She does understand the risks and benefits of this transfer and wishes to proceed. CURRENT MEDICATIONS: 1. Acetaminophen 650 mg p.o. q.4 hours prn fever or pain. 2. Aspirin 325 mg p.o. daily. 3. Atenolol 25 mg p.o. daily. 4. Atorvastatin 40 mg p.o. daily. 5. Azithromycin 500 mg IV q.24 hours. 6. Clopidogrel 75 mg p.o. daily. 7. Heparin drip 800 units per hour. 8. Humalog sliding scale subcu a.c. and bedtime. 9. Morphine 2 mg IV q.4 hours prn pain. 10. Nitro drip 5 mcg per minute. 11. Normal saline 100 ml per hour. 12. Ondansetron 4 mg IV q.6 hours prn nausea. 13. Pantoprazole 40 mg p.o. daily. 14. Compazine 10 mg IV q.6 hours prn nausea or vomiting. 15. Ceftriaxone 1,000 mg IV q.24 hours. 16. Sertraline 100 mg p.o. daily. DISPOSITION: [facility]. CONDITION: Guarded. DIET: NPO. ACTIVITY: Bedrest. FOLLOW-UP: The patient should follow-up with her primary care provider after discharge from [facility]. This is a summarized report of a complex medical history and hospital stay. For further details, please see the entire medical record. TIME SPENT: Approximately 90 minutes were spent on this transfer. BRIAN BROWN NP [id number]/[facility] #: [id number] MAURY
--- NOTE | 2018-06-15 21:29 | CONS ---
CC: [facility]; Dr. Gonzáles, [facility], [place], [place] * DISCHARGE CONSULTATION: DATE OF CONSULT: 06/15/18 INDICATION FOR DISCHARGE CONSULTATION: Congestive heart failure, coronary artery disease, cardiomyopathy. Please see my initial consultation from and cardiac catheterization from 06/14/18. The patient is a 72-year-old female with a history of coronary artery disease, history of 3-vessel stenting back in 2005 and 2006, who was admitted to the hospital with pneumonia, sepsis, was found to have a significant cardiomyopathy with significant ST segment depressions. The patient was having rising troponin levels yesterday morning on 06/14/18 and ultimately went to the cardiac test lab technician. In the cardiac catheterization lab, her circumflex artery was relatively stable. Her stent had 30% to 40% in-stent restenosis. Her LAD was occluded after the second diagonal and her diagonal stent had a distal 99% in-stent restenosis. Her right coronary artery disease had 99% in- stent restenosis with slightly sluggish flow to the distal right coronary artery disease. After consultation with Dr. Lozano, it was decided not to proceed with intervention with this patient as she was having rising creatinine levels and appeared to be slowly leveling off for her troponin levels. She was not having active chest pain. She was admitted to the intensive care unit overnight. Overnight, she started having some more nausea and noted that her troponin level had gone up to 20. Again, repeat consultation with Dr. Lozano, was under the impression that she would not go to the cardiac catheterization lab for urgent stenting of her LAD and right coronary artery. On 06/15/18, I came into the hospital early to see the patient and noted that she was actually relatively stable, her heart rate was 70, her blood pressure was 90/50. The patient was awake and alert and oriented. She had no obvious chest pain. She was sleeping comfortably when I came into the room. In speaking with her, she said that her nausea was better and that her shortness of breath was slightly better. She had no cough. However, troponin levels continued to rise. Her troponin at midnight was 20, at 3 o'clock in the morning it was 23, and at 5 o'clock in the morning it was 27. At this point, the consideration was to have her undergo repeat cardiac catheterization and potential stenting of her LAD and right coronary artery. I had spoken with Dr. Soto who had started the interventional service on Friday. I reviewed the entire case with him and the decision was to consider taking her directly to the cardiac test lab technician. After discussion with [facility] who reviewed the films, discussing the case with Dr. Lozano, and reviewing the case with Dr. Gonzáles who was her previous first mate, the decision was to transfer her to [facility] for high risk intervention. PHYSICAL EXAM: Temperature 98.6, heart rate is 72, blood pressure 87/52, respiratory rate is 20, oxygen saturation 94% on 2 L. Sclerae anicteric. Oropharynx is pink without erythema. Carotids are 2+ without bruits. JVD is normal. Thyroid is normal. Cardiac Exam: S1 and S2 without any murmurs, rubs, or gallops. Lungs are clear to auscultation. There is no dullness to percussion. Abdomen is soft, nontender, and nondistended with normoactive bowel sounds. Extremities show good pulses in his femoral. Dorsalis pedis pulses are slightly low. Her right wrist was ecchymotic but had good pulses in her radial artery. DIAGNOSTIC STUDIES/LAB DATA: Chemistries: Potassium was 5.8; BUN 58; creatinine 3, which was up from 1.8 yesterday. CRP was 127. EKG showed continued ST segment depressions in the lateral and inferior leads. IMPRESSION AND PLAN: This 72-year-old woman who was admitted to the hospital with presumed pneumonia, but has had continually rising troponin levels since Friday. Her major symptoms of ischemia appear to be her nausea that was quite severe last night, but when I saw her this morning, her nausea had resolved. Again, consultation with Dr. Soto and thus consultation with Dr. Gonzáles at [facility] and Dr. Lozano, the decision was to transfer the patient to [facility]. The risks and benefits of this was described in great detail to the patient. I spent approximately 45 minutes discussing the case with Dr. Soto, discussing with the patient and helping with transfer. [id number]/[facility] #: [id number] MTDD
== END 2018-06-15 14:00 | disposition short-term general hospital (02) | DRG 871 ==
LOC: ED 19:27 → MED 06-13 01:14 → MEDTELE 06-13 09:26 → ICU 06-14 11:31
PROVIDERS: ADMIT Internal Medicine; ATTEND Internal Medicine
PROC: B211YZZ Fluoroscopy of Multiple Coronary Arteries using Other Contrast (ICD-10-PCS; 2018-06-14)
PROC: 4A023N7 Measurement of Cardiac Sampling and Pressure, Left Heart, Percutaneous Approach (ICD-10-PCS; principal; 2018-06-14 10:00)
DX: A41.1 Sepsis due to other specified staphylococcus (principal); I21.4 Non-ST elevation (NSTEMI) myocardial infarction; J96.01 Acute respiratory failure with hypoxia; J18.9 Pneumonia, unspecified organism; N17.9 Acute kidney failure, unspecified; J44.0 Chronic obstructive pulmonary disease with (acute) lower respiratory infection; I95.9 Hypotension, unspecified; E11.22 Type 2 diabetes mellitus with diabetic chronic kidney disease; I12.9 Hypertensive chronic kidney disease with stage 1 through stage 4 chronic kidney disease, or unspecified chronic kidney disease; N18.3 Chronic kidney disease, stage 3 (moderate); R91.1 Solitary pulmonary nodule; E11.51 Type 2 diabetes mellitus with diabetic peripheral angiopathy without gangrene; I08.1 Rheumatic disorders of both mitral and tricuspid valves; E78.5 Hyperlipidemia, unspecified; I25.10 Atherosclerotic heart disease of native coronary artery without angina pectoris; F41.9 Anxiety disorder, unspecified; F17.210 Nicotine dependence, cigarettes, uncomplicated; Z82.49 Family history of ischemic heart disease and other diseases of the circulatory system; Z95.5 Presence of coronary angioplasty implant and graft; Z79.84 Long term (current) use of oral hypoglycemic drugs; Z79.02 Long term (current) use of antithrombotics/antiplatelets; Z79.899 Other long term (current) drug therapy; Z88.2 Allergy status to sulfonamides
CPT/HCPCS: 36415; 71046; 71275; 80048; 80053; 80061; 81003; 81015; 82570; 83036; 83605; 83880; 84300; 84484; 85025; 85060; 85379; 85610; 85730; 86140; 87040; 87077; 87086; 87150; 87205; 87641; 87899; 93005; 93306; 93454; 99156; 99157; 99284; A9270-GY; C8929; J0153; J0456; J0696; J0780; J1644; J1650; J2250; J2270; J2405; J2930; J3010; Q9967